=== PATIENT | female | born 1995 | race Two or more races ===

== ENCOUNTER 2018-01-14 11:22 | Outpatient (CLI) | END 2018-01-14 14:17 | disposition home or self-care (01) ==

== ENCOUNTER 2018-03-12 07:42 | Outpatient (CLI) | END 2018-03-12 10:15 | disposition home or self-care (01) ==

== ENCOUNTER 2018-03-14 14:14 | Outpatient (CLI) | END 2018-03-14 18:40 | disposition home or self-care (01) ==